=== PATIENT | male | born 1970 | race Caucasian/White ===

== ENCOUNTER 2016-12-01 07:51 | Emergency (ER) | payer MEDICAID, OTHER ==
[2016-12-01 07:57] VITALS: TEMP 98.7
[2016-12-01] MEDS ORDERED: Sodium Chloride 0.9% 1,000 ML IV ONE (08:13)
[2016-12-01] MEDS ORDERED: Sodium Chloride 0.9% 1,000 ML ONE (08:29)
--- NOTE | 2016-12-01 08:35 | C.PDOC ---
History Of Present Illness 46 y/o male presents to the ED with complains of a "rash" to his back and bilateral arms for the past month, described as dryness and itching. Patient was seen at [facility] given pills which he took without relief. Patient also states he is diabetic, never given medications to take. He has noticed weight loss of the past 1.5 months of about 25-30 pounds, without trying to lose weight. He also reports decreased appetite and discomfort with eating solid foods; states he has to eat smaller bites in order for food to go down without pain. Patient denies choking sensation, trouble swallowing liquids, SOB, headache, dizziness, weakness, numbness or any other complaints. SOCHx smokes tobacco. Time Seen by Provider: 12/01/16 08:04 Chief Complaint (Nursing): Abnormal Skin Integrity History Per: Patient History/Exam Limitations: no limitations Onset/Duration Of Symptoms: Days Current Symptoms Are (Timing): Still Present Severity: Moderate Recent travel outside of the [place]: No Past Medical History Reviewed: Historical Data, Nursing Documentation, Vital Signs Vital Signs: Last Vital Signs Temp 98.7 F 12/01/16 07:56 Pulse 86 12/01/16 11:30 Resp 18 12/01/16 11:30 BP 133/90 12/01/16 11:30 Pulse Ox 98 12/01/16 11:30 - Medical History PMH: Diabetes - [facility] Procedures OTHER ARTHROTOMY NEC (01/07/15) TETANUS TOXOID ADMINIST (01/06/15) Family History: States: Unknown Family Hx - Social History Hx Tobacco Use: No Hx Alcohol Use: No Hx Substance Use: No - Immunization History Hx Tetanus Toxoid Vaccination: No Hx Influenza Vaccination: No Hx Pneumococcal Vaccination: No Review Of Systems Except As Marked, All Systems Reviewed And Found Negative. Constitutional: Positive for: Weight loss. Negative for: Fever ENT: Positive for: Other (difficulty eating solids) Cardiovascular: Negative for: Chest Pain, Palpitations Respiratory: Negative for: Cough, Shortness of Breath, Sputum Gastrointestinal: Negative for: Vomiting Genitourinary: Negative for: Dysuria Skin: Positive for: Rash (back and arms) Neurological: Negative for: Weakness, Numbness, Headache, Dizziness Physical Exam - Physical Exam Appears: Non-toxic, No Acute Distress Skin: Warm, Dry, Other (dryness, flakiness and hyperpigmentation of the back and upper arms) Head: Atraumatic, Normacephalic Eye(s): bilateral: Normal Inspection, EOMI Nose: Normal, No Flaring Oral Mucosa: Moist, Other (white patches to buccal mucosa) Tongue: Other (white patch to anterior tongue) Lips: Normal Appearing Throat: No Erythema, Other (thrush to oral pharynx) Neck: Normal ROM Chest: Symmetrical Cardiovascular: Rhythm Regular, No Murmur Respiratory: Normal Breath Sounds, No Rales, No Rhonchi, No Wheezing Gastrointestinal/Abdominal: Bowel Sounds (active), Soft, No Tenderness, No Distention, No Guarding Extremity: Bilateral: Atraumatic, No Pedal Edema, Normal Color And Temperature, Normal ROM Neurological/Psych: Oriented x3, Normal Speech, Normal Motor, Normal Sensation ED Course And Treatment - Laboratory Results Result Diagrams: 12/01/16 08:27 12/01/16 08:27 Lab Interpretation: Abnormal O2 Sat by Pulse Oximetry: 100 (on room air) Pulse Ox Interpretation: Normal Against Medical Advice - AMA Patient Left Against Medical Advice: The patient declines admission to the hospital and wishes to leave the Emergency Department. This action is against my medical advice. This decision was made with informed refusal. The patient was told that admission to the hospital is necessary. Explanation of the reasons why were discussed. The risks of leaving were explained to the patient and include, but are not limited to, worsening of known or currently unknown conditions, permanent disability and from undiagnosed or untreated conditions. The patient has the capacity to make this informed decision and understands my explanation of the current medical problem and risks of leaving. The patient voluntarily accepts these risks and signed an AMA form documenting our conversation. The patient was given the opportunity to ask questions and reconsider. The patient was encouraged to return to the Emergency Department at any time for further care. Medical Decision Making Medical Decision Making: Impression: 46 y.o male diabetic not taking any medications, complains of weight loss, rash and dysphagia. Exam reveals eczema and thrush. Plan: * labs * UA * IV fluids Progress: Case discussed with Dr Shaver who agreed with plan and to send HIV test, she also examined patient at bedside. Labs reviewed showed leukopenia, and HIV was reactive. Elevated glucose I inform patient of results and explain plan to admit patient for treatment of newly diagnosed HIV and for DM control. Patient then states he does not with to stay in the hospital and is choosing to leave against medical advice. I have personally explained to the patient that choosing to do so may result in worsening condition, permanent bodily harm or . I have discussed at great length that without further evaluation and monitoring there may be unforeseen circumstances and/or deterioration causing permanent bodily harm or as a result of their choice. The patient is alert, oriented, and shows the mental capacity to make clear decisions regarding the patients health care at this time. The patient continues to wish to leave against medical advice. In light of the patients decision to leave AMA, follow-up has been arranged with clinic and Rx given for nystatin. The patient is aware of the importance of following up as instructed. The patient has been advised that they should return to the ED immediately if they change their mind at any time, or if their condition begins to change or worsen in any way. Disposition Counseled Patient/Family Regarding: Diagnosis, Need For Followup, Rx Given - Disposition Referrals: [facility] [Outside] [facility] [Outside] Disposition: AGAINST MEDICAL ADVICE Disposition Time: 11:05 Condition: FAIR Additional Instructions: Usted cobb decidido no ser admitido por geiger condicin Es Muy Importante que usted siga en la clnica para el cuidado adicional Prescriptions: Mineral Oil/Hydrophil Petrolat [Aquaphor Ointment] 396 gm TP BID #1 oint...g. Nystatin [Nystatin Oral Susp] 1 bottle PO QID #1 udc Instructions: Against Medical Advice (ED), HIV Infection (ED), Diabetes Mellitus Type 2 in Adults (ED) Print Language: OCCITAN - POA Present On Arrival: None - Clinical Impression Clinical Impression: Eczema, Diabetes, HIV (human immunodeficiency virus infection), Oral thrush - PA / CHUCK WAGON COOK / Resident Statement MD/DO has reviewed & agrees with the documentation as recorded. - Scribe Statement The provider has reviewed the documentation as recorded by the Skipibjudi Erickson All medical record entries made by the Alessia were at my direction and personally dictated by me. I have reviewed the chart and agree that the record accurately reflects my personal performance of the history, physical exam, medical decision making, and the department course for this patient. I have also personally directed, reviewed, and agree with the discharge instructions and disposition.
[2016-12-01 08:38] LABS: CHLORIDE 100 mmol/L (98-107)
[2016-12-01 08:39] LABS: BASO % 0.8 % (0.0-2.0); EOS # 0.1 K/uL (0.0-0.7); EOS % 5.2 % (0.0-4.0); HEMATOCRIT 41.3 % (35.0-51.0); LYMPH # 0.4 K/uL (1.0-4.3); MEAN CORPUSCULAR HEMOGLOBIN 30.4 pg (27.0-31.0); MEAN CORPUSCULAR HGB CONC 34.2 g/dL (33.0-37.0); MEAN PLATELET VOLUME 9.1 fL (7.2-11.7); MONO # 0.5 K/uL (0.0-0.8); NRBC % 0.1 % (0.0-2.0); PLATELET COUNT 158 K/uL (130-400); POTASSIUM 3.5 mmol/L (3.6-5.2); RED CELL DISTRIBUTION WIDTH 11.9 % (11.5-14.5); SODIUM 138 mmol/L (132-148)
[2016-12-01 08:41] LABS: BILIRUBIN,TOTAL 1.5 mg/dL (0.2-1.3); CARBON DIOXIDE 28 mmol/L (22-30); GFR AFRICAN-AMERICAN > 60; WHITE BLOOD COUNT 2.1 K/uL (4.8-10.8)
[2016-12-01 08:42] LABS: ALKALINE PHOSPHATASE 78 U/L (38-126); ALT/SGPT 131 U/L (21-72); AST/SGOT 89 U/L (17-59); BLOOD UREA NITROGEN 11 mg/dL (9-20); CALCIUM 8.8 mg/dl (8.6-10.4); GLUCOSE,RANDOM 257 mg/dL (75-110); RBC URINE 1 /hpf (0-3); TOTAL PROTEIN 7.9 g/dL (6.3-8.3); URINE BILIRUBIN NEGATIVE (NEGATIVE); URINE BLOOD NEGATIVE (NEGATIVE); URINE COLOR Amber (YELLOW); URINE GLUCOSE (UA) 1+ mg/dL (Normal); URINE KETONE TRACE mg/dL (NEGATIVE); URINE LEUKOCYTE ESTERASE NEG Leu/uL (Negative); URINE PROTEIN 1+ mg/dL (NEGATIVE); WBC URINE 1 /hpf (0-5)
[2016-12-01 09:33] LABS: EOSINOPHIL 2 % (0-4); NEUTROPHIL 59 % (50-75); TOTAL CELLS COUNTED 100
[2016-12-01 11:45] VITALS: BP 133/90; PULSE 86; RESP 18
[2016-12-01 17:05] VITALS: O2SAT 100
== END 2016-12-01 11:30 | disposition left against medical advice (07) ==
LOC: C.ER 07:51
DX: L30.9 Dermatitis, unspecified (principal); E11.9 Type 2 diabetes mellitus without complications; B20 Human immunodeficiency virus [HIV] disease; B37.0 Candidal stomatitis
CPT/HCPCS: 80053; 81001; 82009; 82948; 85025; 86703; 87086; 96360; 99284; J7040